=== PATIENT | male | born 1990 | race Caucasian/White ===

== ENCOUNTER 2016-12-19 20:56 | Emergency (ER) | payer SELFPAY ==
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
== END 2016-12-19 21:45 | disposition home or self-care (01) ==
LOC: ER 20:56
DX: M54.12 Radiculopathy, cervical region (principal); F31.9 Bipolar disorder, unspecified; F17.200 Nicotine dependence, unspecified, uncomplicated; Z88.6 Allergy status to analgesic agent; Z79.899 Other long term (current) drug therapy